=== PATIENT | male | born 1975 | race Caucasian/White ===

== ENCOUNTER 2021-07-02 11:21 | Outpatient (CLI) | payer OTHER ==
[2021-07-02 17:01] LABS: Albumin (w/Testosterone Panel) 4.5 g/dL
[2021-07-02 17:27] LABS: Sex Hormone Binding Globulin 22.1 nmol/L (11-78); Testosterone, Free 32.7 pg/mL (47-244); Testosterone, Total 144.9 ng/dL (240-871)
== END 2021-07-02 11:22 | disposition home or self-care (01) ==
LOC: MADLAB 11:21
PROVIDERS: ATTEND Family Medicine
DX: E34.9 Endocrine disorder, unspecified (principal)
CPT/HCPCS: 36415; 82627; 84270; 84403